=== PATIENT | male | born 1985 | race Caucasian/White ===

== ENCOUNTER 2019-10-03 23:33 | Emergency (ER) | payer OTHER ==
[~2019-10-03] VITALS: Ht 190.5 cm; Wt 109.1 kg
--- NOTE | 2019-10-03 23:56 | PHYS DOC ---
Past History Past Medical History: Anxiety, Depression, Diabetes, Other Additional Past Medical Histor: INSULIN PUMP Past Surgical History: No Surgical History Alcohol Use: Occasionally General Adult EDM: Chief Complaint: SUICIDAL IDEATION HPI: HPI: ".. I was going to blow my head off with 12-gauge shotgun until the police arrived.. It has been a bad fucking year, and bad fucking week... and bad fucking night... a bad infection at night" " I was having an argument with my of yady 5 years..." "The police took the shot gun..." Patient is a 33 year old male who presents with above hx and complaints suicidal ideation. Patient reportedly having a verbal argument . Recent history of increased social stressors and poor control of his diabetes. Patient does give a history of depression and anxiety. Patient does admit to alcohol excess use tonight. No history of travel or specific ill contacts. No history immunosuppression. Patient normally follows with Dr. Worley. Pt. states he get more depressed when he drinks excessively. Patient denies any other drug use. Patient denies any trauma. Patient denies any immunosuppression. No recent travel outside [facility]. Review of Systems: Review of Systems: Constitutional: Denies fever or chills Eyes: Denies change in visual acuity HENT: Denies nasal congestion or sore throat Respiratory: Denies cough or shortness of breath Cardiovascular: Denies chest pain or edema GI: Denies abdominal pain, nausea, vomiting, bloody stools or diarrhea : Denies dysuria Musculoskeletal: Denies back pain or joint pain Integument: Denies rash Neurologic: Denies headache, focal weakness or sensory changes Endocrine: History of poor control of blood sugars for the past month Lymphatic: Denies swollen glands Psychiatric: Complains of depression . Suicidal ideation, anxiety Heart Score: HEART Score for Chest Pain: HEART Score for Chest Pain Response (Comments) Value History Moderately Suspicious 1 ECG Normal 0 Age < 45 0 Risk Factors No Risk Factors 0 Troponin < Normal Limit 0 Total 1 Risk Factors: Risk Factors: DM, Current or recent (<one month) smoker, HTN, HLP, family history of CAD, obesity. Risk Scores: Score 0 - 3: 2.5% MACE over next 6 weeks - Discharge Home Score 4 - 6: 20.3% MACE over next 6 weeks - Admit for Clinical Observation Score 7 - 10: 72.7% MACE over next 6 weeks - Early Invasive Strategies Family History: Family History: Diabetes Current Medications: Current Meds: See nursing for home meds Allergies: Allergies: Allergies Coded Allergies Type Severity Reaction Last Updated Verified No Known Drug Allergies 10/03/19 No Physical Exam: PE: Constitutional: Well developed, well nourished, no acute distress, very intoxicated and appearance. [] HENT: Normocephalic, atraumatic, bilateral external ears normal, oropharynx moist, no oral exudates, nose normal. [] Eyes: PERRLA, EOMI, conjunctiva injected, no discharge. [] Neck: Normal range of motion, no tenderness, supple, no stridor. [] Cardiovascular: Tachycardia heart rate regular rhythm, no murmur [] Lungs & Thorax: Bilateral breath sounds equal apex with few scattered wheezes auscultation [] Abdomen: Bowel sounds normal, soft, no tenderness, no masses, no pulsatile masses. [] Insulin pump Skin: Warm, dry, no erythema, no rash. [] Back: No tenderness, no CVA tenderness. [] Extremities: No tenderness, no cyanosis, no clubbing, ROM intact, no edema. [] Neurologic: Alert and oriented X 3, normal motor function, normal sensory function, no focal deficits noted. [] Wide gait. Right-hand dominant. Mild discoordination Psychologic: Affect depressed and anxious, judgement is impaired judgment due to intoxication on alcohol, mood depressed Current Patient Data: Vital Signs: Vital Signs Date Time Temp Pulse Resp B/P (MAP) Pulse Ox O2 Delivery O2 Flow Rate FiO2 10/03/19 23:43 98.1 127 18 161/105 (123) 96 Room Air EKG: EKG: My interpretation EKG shows a sinus tachycardia 121 bpm. No findings of other acute morphology. No findings of STEMI with contralateral changes. [] Radiology/Procedures: Radiology/Procedures: [][address] [place] [id number] IMAGING REPORT Signed PATIENT: MAMTA LOCKWOOD ACCOUNT: [id number] : 1985 LOCATION: ER AGE: 33 SEX: M EXAM STATUS: DEP ER ORD. PHYSICIAN: CHERIE NUNES MD REASON: si, DIABETIC PROCEDURE: PORTABLE CHEST 1V AP portable chest radiograph 10/04/2019 Clinical History: Diabetes. Suicidal ideation. An AP erect portable digital radiograph of the chest was obtained. The cardiac and mediastinal silhouettes are within normal limits in size and configuration. No acute pulmonary infiltrate is seen. No pleural effusion or pneumothorax is noted. The osseous structures are grossly intact. IMPRESSION: No acute abnormality is seen. Electronically signed by: Harry Allen MD (10/04/2019 5:30 AM) [id number] DICTATED AND SIGNED BY: HARRY ALLEN MD DATE: 10/04/19529 CC: CHERIE NUNES MD; GABRIELLE WORLEY ~ Course & Med Decision Making: Course & Med Decision Making Pertinent Labs and Imaging studies reviewed. (See chart for details) Patient received IV fluids and underwent tele-psych evaluation.- See Tele psych evaluation. Plan follow up at [facility]. Pt. also follow up with Dr. Worley . Impression: 1. Depression 2. Suicidal Ideation 3. Alcohol Abuse 295 4. DM Gluc = 258 5. Anxiety disorder [] Dragon Disclaimer: Dragon Disclaimer: This electronic medical record was generated, in whole or in part, using a voice recognition dictation system. Departure Departure: Disposition: 01 HOME/RESIDENCE PRIOR TO ADM Condition: STABLE Referrals: PCP,NO (PCP) Justification of Admission: Justification of Admission: Justification of Admission Dx: N/A Dragon Disclaimer This chart was dictated in whole or in part using Voice Recognition software in a busy, high-work load, and often noisy Emergency Department environment. It may contain unintended and wholly unrecognized errors or omissions. CHERIE NUNES MD Oct 03, 2019 23:56
[2019-10-04] MEDS ORDERED: IV RINGERS SOLUTION,LACTATED 1,000 ML IV SCH
--- NOTE | 2019-10-04 | EKG ---
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
[2019-10-04 00:41] LABS: BARBITURATES NEG (NEG); BENZODIAZEPINES NEG (NEG); CANNABINOIDS NEG (NEG); COCAINE NEG (NEG); METHADONE NEG (NEG); OPIATES NEG (NEG); PHENCYCLIDINE NEG (NEG)
[2019-10-04 00:43] LABS: CALCIUM 8.7 mg/dL (8.5-10.1); GFR 86.6; POTASSIUM 3.5 mmol/L (3.5-5.1)
[2019-10-04 00:48] LABS: BASO % 1 % (0-3); EOS % 1 % (0-3); HEMATOCRIT 50.9 % (39.0-53.0); HEMOGLOBIN 17.6 g/dL (13.0-17.5); LYMPH % 36 % (24-48); MEAN CORPUSCULAR HEMOGLOBIN 32 pg (25-35); MEAN CORPUSCULAR HGB CONC 35 g/dL (31-37); MEAN CORPUSCULAR VOLUME 94 fL (79-100); MONO # 0.4 x10^3/uL (0.0-1.1); MONO % 7 % (0-9); NEUT # 3.1 x10^3uL (1.8-7.7); NEUT % 56 % (31-73); PLATELET COUNT 321 x10^3/uL (140-400); RED BLOOD COUNT 5.44 x10^6/uL (4.30-5.70); WHITE BLOOD COUNT 5.5 x10^3/uL (4.0-11.0)
[2019-10-04 00:49] LABS: DIRECT BILIRUBIN 0.1 mg/dL (0.0-0.2); TOTAL BILIRUBIN 0.3 mg/dL (0.2-1.0); TOTAL PROTEIN 7.7 g/dL (6.4-8.2)
[2019-10-04 01:00] VITALS: BP 135/82
[2019-10-04 01:01] LABS: BACTERIA,URINE FEW /HPF (0-FEW); BILIRUBIN,URINE NEG (NEG); CLARITY,URINE CLEAR; COLOR,URINE STRAW; GLUCOSE,URINE 500 mg/dL (NEG); NITRITE,URINE NEG (NEG); RBC,URINE 0 /HPF (0-2); SQUAMOUS EPITHELIAL CELL,UR OCC /LPF; UROBILINOGEN,URINE 0.2 mg/dL (0.2 mg/dL); WBC,URINE 0 /HPF (0-4)
[2019-10-04 01:05] LABS: AMPHETAMINE/METHAMPHETAMINE NEG (NEG)
[2019-10-04 01:15] LABS: ETHANOL 295 mg/dL (0-10); SALIC < 2.8 mg/dL (2.8-20.0)
[2019-10-04 01:28] LABS: ACETAMIN < 2.0 mcg/mL (10-30)
--- NOTE | 2019-10-04 05:33 | RAD ---
AP portable chest radiograph 10/04/2019 Clinical History: Diabetes. Suicidal ideation. An AP erect portable digital radiograph of the chest was obtained. The cardiac and mediastinal silhouettes are within normal limits in size and configuration. No acute pulmonary infiltrate is seen. No pleural effusion or pneumothorax is noted. The osseous structures are grossly intact. IMPRESSION: No acute abnormality is seen. Electronically signed by: Harry Allen MD (10/04/2019 5:30 AM) [id number]
== END 2019-10-04 04:30 | disposition home or self-care (01) ==
LOC: ER 23:33
DX: R45.851 Suicidal ideations (principal); F32.9 Major depressive disorder, single episode, unspecified; F41.9 Anxiety disorder, unspecified; F10.10 Alcohol abuse, uncomplicated; E11.65 Type 2 diabetes mellitus with hyperglycemia; Y90.8 Blood alcohol level of 240 mg/100 ml or more
CPT/HCPCS: 36415; 71045; 80048; 80076; 80307; 80329; 81001; 82550; 84443; 84484; 85025; 85610; 85730; 93005; 96360; 99285; G0480; J7120